=== PATIENT | male | born 1940 | race Caucasian/White ===

== ENCOUNTER 2016-11-25 07:04 | Outpatient (CLI) | payer MEDICARE ==
--- NOTE | ~2016-11-25 | HEMODYNAMI ---
PATIENT:YOSELIN GOLDBERG MEDICAL RECORD: [id number] : 44 LOCATION:[facility] ADMISSION DATE: 11/25/16 Generatedon:11/25/201610:20 Patient name: YOSELIN GOLDBERG Patient #: [id number] SSN: : 1940 Date of study: 11/25/2016 Page: Of Hemodynamic Procedure Report Patient Data Patient Demographics Procedure consent was obtained First Name: YOSELIN Gender: Male Last Name: YUSUF : 1940 Patient #: [id number] Age: 76 year(s) Race: Unknown Additional ID: [id number] Contact details [address]: [address] [place] [address] State: [place] City: [place] Zip code: [address] Past Medical History Allergies Allergen Reaction Date Comments Reported Other allergy 11/25/2016 Cortisone, Sulfa Admission Admission Data Admission Date: 11/25/2016 Admission Time: 7:04 Procedure Procedure Types Cath Procedure Diagnostic Procedure LHC LHC w/Coronaries PCI Procedure Coronary Stent Initial Miscellaneous Procedures Moderate Sedation up to 15 minutes Procedure Description Procedure Date Procedure Date: 11/25/2016 Procedure Start Time: 9:47 Procedure End Time: 10:15 Procedure Staff Name Function Aiden Underwood MD Performing Physician Domenica Bañuelos RT Scrub Ramon Lobo RN Nurse Roxana Dacosta RT Monitor Procedure Data Cath Procedure Fluoroscopy Diagnostic fluoroscopy Total fluoroscopy Time: 8.1 time: 8.1 min min Diagnostic fluoroscopy Total fluoroscopy dose: dose: 1206 mGy 1206 mGy Contrast Material Contrast Material Type Amount (ml) Isovue 300 83 Entry Location Entry Primary Successful Side Size Upsize Upsize Entry Closure Fuentes ccessful Closure Location (Fr) 1 (Fr) 2 (Fr) Remarks Device Remarks Radial Right 6 Fr Mechanical TR band artery Short Compression Estimated blood loss: 10 ml Diagnostic catheters Device Type Used For End Catheter Placement Diagnostic Terumo 5Fr Procedure [place] 110cm catheter Diagnostic Infinity 5Fr Procedure AR 1 MOD catheter Procedure Complications No complications Procedure Medications Medication Administration Route Dosage Oxygen NC 2 l/min Heparin Flush Bag added to field 2 bags (1000units/500ml NS) 0.9% NaCl I.V. 100 ml/hr Radial Cocktail added to field 1 syringe (Verapomil 2mg/Nitro 400mcg/Heparin 1500units) Versed I.V. 1 mg Fentanyl I.V. 50 mcg Radial Cocktail I.A. 1 syringe (Verapomil 2mg/Nitro 400mcg/Heparin 1500units) Angiomax (bolus) I.V. 13.5 ml Angiomax Drip I.V. drip 31.9 ml/hr (250mg/50ml NS) (Standard) Fentanyl I.V. 25 mcg Versed I.V. 1 mg Hemodynamics Rest Heart Rate: 72 (bpm) Pressure Samples Time Site Value (mmHg) Purpose Heart Use Rate(bpm) 9:52 LV 131/8,15 Snapshot 63 9:52 LV 136/68,78 Snapshot 69 9:57 AO 119/58(85) Snapshot 70 Gradients Valve Time Site Site Mean SEP/DFP Peak To Heart Use 1 2 (mmHg) (sec/min) Peak Rate (mmHg) (bpm) Other 9:52 LV LV 66 Snapshots Pre Cath Intra NCS Post Cath Vital Signs Time Heart Resp SPO2 etCO2 [id number] NIBP (mmHg) Rhythm Pain Sedation Rate (ipm) (%) (mmHg) (mmHg) Status Level (bpm) 9:38:44 52 17 99 0 0 158/71(135) NSR 0 (11) 10(A) , No pain 9:43:37 65 17 98 0 0 154/69(105) NSR 0 (11) 10(A) , No pain 9:48:30 51 17 98 0 0 146/69(116) NSR 0 (11) 10(A) , No pain 9:53:12 60 18 99 0 0 125/64(96) NSR 0 (11) 10(A) , No pain 9:57:53 69 18 98 0 0 123/58(107) NSR 0 (11) 10(A) , No pain 10:02:38 64 17 98 0 0 121/61(101) NSR 0 (11) 10(A) , No pain 10:07:18 63 17 98 0 0 127/75(98) NSR 0 (11) 10(A) , No pain 10:12:36 59 17 99 0 0 119/69(100) NSR 0 (11) 10(A) , No pain 10:18:14 56 17 98 0 0 121/67(105) NSR 0 (11) 10(A) , No pain Medications Time Medication Route Dose Verified Delivered Reason Note s Effectiveness by by 9:38:04 Oxygen NC 2 l/min Aiden Ramon Per physician Kj Lobo RN, MD 9:38:22 Heparin Flush added 2 bags Aiden Ramon used for Bag to Kj Lobo RN procedure (1000units/500ml field MONDRAGON NS) 9:38:36 0.9% NaCl I.V. 100 Aiden Ramon Per physician ml/hr Kj Lobo RN, MD 9:38:57 Radial Cocktail added 1 Aiden Ramon used for (Verapomil to syringe Kj Lobo RN procedure 2mg/Nitro field MONDRAGON 400mcg/Heparin 1500units) 9:43:21 Versed I.V. 1 mg Aiden Ramon for sedation Kj Lobo RN, MD 9:43:29 Fentanyl I.V. 50 mcg Aiden Ramon for sedation Kj Lobo RN, MD 9:50:40 Radial Cocktail I.A. 1 Aiden Aiden for (Verapomil syringe Kj Underwood MD vasodilation 2mg/Nitro MD 400mcg/Heparin 1500units) 10:08:45 Angiomax (bolus) I.V. 13.5 ml Aiden Ramon for Kj Lobo RN anticoagulation 10:09:05 Angiomax Drip I.V. 31.9 Aiden Ramon for (250mg/50ml NS) drip ml/hr Kj Lobo RN anticoagulation (Standard) 10:09:11 Fentanyl I.V. 25 mcg Aiden Ramon for sedation Kj Lobo RN, MD 10:09:16 Versed I.V. 1 mg Aiden Ramon for sedation Kj Lobo RN, MD Procedure Log Time Note 9:12:37 Ramon Lobo RN sent for patient. Start room use. 9:12:44 Time tracking: Regular hours 9:12:49 Plan of Care:Hemodynamics will remain stable., Cardiac rhythm will remain stable., Comfort level will be maintained., Respiratory function will remain adequate., Patient/ family verbilizes understanding of procedure., Procedure tolerated without complication., Recovers from procedure without complications.. 9:37:06 Vital chart was started 9:38:04 Oxygen 2 l/min NC was administered by Ramon Lobo RN; Per physician; 9:38:22 Heparin Flush Bag (1000units/500ml NS) 2 bags added to field was administered by Ramon Lobo RN; used for procedure; 9:38:36 0.9% NaCl 100 ml/hr I.V. was administered by Ramon Lobo RN; Per physician; 9:38:57 Radial Cocktail (Verapomil 2mg/Nitro 400mcg/Heparin 1500units) 1 syringe added to field was administered by Ramon Lobo RN; used for procedure; 9:39:20 Patient received from Pre/Post Procedure Room to CCL 1 Alert and oriented. Tansferred to table in Supine position. 9:39:22 Warm blankets applied, and adelita hugger turned on for patient comfort. 9:39:23 Correct patient and procedure confirmed by team. 9:39:25 Signed procedure consent form obtained from patient. 9:39:26 ECG and BP/O2 sat monitors applied to patient. 9:39:28 Baseline sample Acquired. 9:39:38 Baseline sample Acquired. 9:39:47 Rhythm: sinus rhythm 9:39:49 Full Disclosure recording started 9:40:48 H&P Date Dictated: 11/25/2016 Within 30 days and on chart., H&P Addendum completed by physician on day of procedure. (MUST COMPLETE FOR ALL OUTPATIENTS). 9:40:51 Pre-procedure instructions explained to patient. 9:40:53 Family in waiting room. 9:40:55 Patient NPO since Midnight. 9:41:14 Patient allergic to Other allergyCortisone, Sulfa 9:41:23 Is the patient allergic to Iodine/contrast media? No. 9:41:25 Was the patient premedicated? Yes 9:41:27 Is patient on blood thinner?No 9:41:30 Patient diabetic? No. 9:41:38 Snore? No 9:41:40 Sleep apnea? No 9:41:47 Dentures? No ? 9:41:52 Patient pain scale 0/10 ?. 9:41:59 IV patent on arrival in left forearm with 0.9% NaCl at [facility]. 9:42:09 Lab results completed and on chart. 9:42:14 Right Radial & Right Groin area was prepped with chlora-prep and draped in sterile fashion 9:42:16 Alarms reviewed by R. N. 9:42:16 Sharps counted by scrub and verified by R.N. 9:42:17 Physician paged 9:42:18 Physician arrived 9:42:19 --------ALL STOP TIME OUT------ 9:42:21 Final Timeout: patient, procedure, and site verified with staff and physician. All members of the team are in agreement. 9:42:24 Right Radial & Right Groin site verified by team. 9:42:28 Sedation plan: IV Moderate Sedation Versed, Fentanyl 9:43:21 Versed 1 mg I.V. was administered by Ramon Lobo RN; for sedation; 9:43:29 Fentanyl 50 mcg I.V. was administered by Ramon Lobo RN; for sedation; 9:46:34 Use device set Radial Dx 9:46:38 Procedure started. 9:47:30 Local anesthetic to right radial artery with Lidocaine 2% by Aiden Underwood MD.INITIAL ACCESS ONLY 9:50:10 A 6 Fr Short sheath was inserted into the Right Radial artery 9:50:40 Radial Cocktail (Verapomil 2mg/Nitro 400mcg/Heparin 1500units) 1 syringe I.A. was administered by Aiden Underwood MD; for vasodilation; 9:51:21 A Diagnostic Terumo 5Fr [place] 110cm catheter was advanced over the wire and used for Procedure. 9:51:35 Acist Syringe opened to sterile field. 9:51:37 Medline Cath Pack opened to sterile field. 9:51:37 Bag Decanter opened to sterile field. 9:51:38 Terumo 6Fr Slender Glidesheath opened to sterile field. 9:51:38 St Yovanny 260cm J .035 wire opened to sterile field. 9:51:39 Acist Hand Control opened to sterile field. 9:51:39 Acist Manifold opened to sterile field. 9:51:39 Tegaderm 4 x 4 opened to sterile field. 9:51:40 MBrace Wrist Support opened to sterile field. 9:51:48 J wire advanced. 9:53:05 LCA angiography performed. 9:56:22 Catheter removed. 9:58:39 A Diagnostic Infinity 5Fr AR 1 MOD catheter was advanced over the wire and used for Procedure. 9:58:43 RCA angiography performed. 9:59:40 Proceeding to intervention. 9:59:45 Merit BasixCompak Inflation Kit opened to sterile field. 9:59:55 Medtronic Launcher 6Fr EBU 3.5 guide catheter opened to sterile field. 10:00:09 6 Fr EBU 3.5 guide catheter was inserted over the wire 10:00:33 SimpleMist BMW Cassoday II J-Tip 190cm wire opened to sterile field. 10:02:08 BMW wire advanced. 10:03:42 Wire advanced across lesion. 10:08:45 Angiomax (bolus) 13.5 ml I.V. was administered by Ramon Lobo RN; for anticoagulation; 10:09:05 Angiomax Drip (250mg/50ml NS) (Standard) 31.9 ml/hr I.V. drip was administered by Ramon Lobo RN; for anticoagulation; 10:09:11 Fentanyl 25 mcg I.V. was administered by Ramon Lobo RN; for sedation; 10:09:16 Versed 1 mg I.V. was administered by Ramon Lobo RN; for sedation; 10:10:26 Inflation Number: 1 A Locustdale RX 2.25 x 15 stent was prepped and advanced across the Mid CX. The stent was deployed at 12 JANN for 0:33 (min:sec). 10:10:51 Stent catheter was removed intact over wire. 10:11:36 Wire removed. 10:11:38 Guide catheter removed. 10:12:30 Sheath removed intact; hemostasis achieved with Mechanical Compression to the Right Radial artery. 10:12:43 Terumo TR Band Standard opened to sterile field. 10:12:48 Procedure ended.(Physican Out) 10:13:00 Fluoroscopy time 08.10 minutes. 10:13:03 Fluoroscopy dose: 1206 mGy 10:13:03 Flurop Dose total: 1206 10:13:08 Contrast amount:Isovue 300 83ml. 10:13:10 Sharps counted by scrub and verified by R.N. 10:13:14 TR band inflated with 10cc of air. 10:13:20 Insertion/operative site no bleeding no hematoma. 10:13:31 Post Procedure Pulses reassessed and unchanged 10:13:36 Post-procedure physical assessment completed. ASA score P 2 - A patient with mild systemic disease as per Aiden Underwood MD. 10:13:44 Post procedure rhythm: sinus rhythm 10:13:47 Estimated blood loss: 10 ml 10:14:03 Procedure type changed to Cath procedure, Diagnostic procedure, LHC, LHC w/Coronaries, PCI procedure, Coronary Stent Initial, Miscellaneous Procedures, Moderate Sedation up to 15 minutes 10:14:30 Procedure and supply charges have been captured, reviewed, submitted and are correct. 10:15:04 Procedure Complication : No complications 10:15:08 Vital chart was stopped 10:15:09 See physician's report for complete and final results. 10:15:12 Report given to Pre/Post Procedure Room. 10:15:15 Patient transfered to Pre/Post Procedure Room with Stretcher. 10:15:18 Procedure ended. 10:15:18 Full Disclosure recording stopped 10:15:21 End room use (Document Last) Intervention Summary Intervention Notes Time ActionType Lesion and Equipment Action# Pressure Duration Attributes Used 10:10:26 Place stent Mid CX Locustdale RX 1 12 00:33 2.25 x 15 stent Device Usage Item Name Manufacture Quantity Catalog Hospital Part Current Minim al Lot# / Number Charge Number Stock Stock Serial# Code Diagnostic Terumo 1 [id number] 246340 254096 5 Terumo 5Fr [place] 110cm catheter Acist Acist 1 74593 592263 011033 629788 20 Syringe Medical Systems Inc Medline Cardinal 1 [id number] 235531 29025 002985 5 Cath Pack Health Bag Microtek 1 2001S 421743 70160 641214 5 [employer] Terumo 6Fr Terumo 1 [id number] 052601 923599 667975 [address] St Yovanny 1 765812 131719 473312 230951 30 260cm J .035 wire Acist Hand Acist 1 13987 335217 178876 546163 5 Diablo [employer] Medical Systems Inc Acist Acist 1 45257 144503 270173 564469 5 Ph[employer] Medical Systems Inc Tegaderm 4 3M 1 1626W 105911 280903 854497 5 x 4 MBrace Advanced 1 140-0250-00 561326 67363 619294 5 Wrist Vascular Support Dynamics Diagnostic Cardinal 1 [id number] 834727 294643 552456 15 Project Fixupity Health 5Fr AR 1 MOD catheter Merit Merit 1 [id number] 984258 484510 085833 15 BasixCompak Medical Inflation Kit Medtronic Medtronic 1 [id number] 601496 43475 862399 3 Launcher 6Fr EBU 3.5 guide catheter Logan BMW Logan 1 [id number] 465403 98482 454542 5 Cassoday Vascular II J-Tip 190cm wire [place] RX Medtronic 1 [id number] 395155 8632313 169082 5 [id number] 2.25 x 15 stent Terumo TR Terumo 1 [id number] 880882 298146 223626 40 Band Standard Signature Audit [place] Stage Time Signature Unsigned Intra-Procedure 11/25/2016 Roxana Dacosta 10:20:18 AM RT(R) Signatures Monitor : Roxana Dacosta Signature : RT Date : Time : [place] [id number] [place] [address]
[2016-11-25] MEDS ORDERED: PROSCAR5 MG PO (07:41)
[2016-11-25] MEDS ORDERED: FLUTICASONE PRO16 GM NASAL (07:41)
[2016-11-25] MEDS ORDERED: CIPRO500 MG PO (07:42)
[2016-11-25] MEDS ORDERED: COZAAR50 MG PO (07:42)
[2016-11-25] MEDS ORDERED: NITROSTAT0.4 MG SL (07:42)
[2016-11-25] MEDS ORDERED: ZYRTEC10 MG PO (07:43)
[2016-11-25] MEDS ORDERED: LEXAPRO20 MG PO (07:43)
[2016-11-25] MEDS ORDERED: FLINTSTONE1 TAB.CHEW PO (07:43)
[2016-11-25 08:04] VITALS: BP 154/70; BMI 30.4
[2016-11-25 09:33] LABS: BASOPHILS 0.7 % (0-2); EOSINOPHILS 8.8 % (0-7); HEMATOCRIT 38.1 % (42.0-54.0); HEMOGLOBIN 13.3 g/dL (13.5-17.5); IMMATURE GRANULOCYTES 0.4 % (0-5); LYMPHOCYTES 40.7 % (15-50); MCH 33.3 pg (26.0-34.0); MCHC 34.9 g/dL (31.0-37.0); MCV 95.3 fL (80.0-100.0); MONOCYTES 12.9 % (2-11); NEUTROPHILS 36.5 % (40-80); PLATELET COUNT 203 10x3/uL (130-400); RDW 13.3 % (11.5-14.5); WBC 7.1 10x3/uL (4.8-10.8)
--- NOTE | 2016-11-25 10:30 | NUR ---
1030 RECEIVED PT FROM [employer]. PT IS AWAKE, DENIES ANY C/O PAIN OR NAUSEA. TR BAND TO RIGHT WRIST IS CDI, NO BLEEDING OR HEMATOMA NOTED. WRIST IMMOBILIZER IN PLACE. SINUS BRADYCARDIA ON MONITOR, RATE 58, DENIES ANY C/O CHEST PAIN. CALL LIGHT IN REACH, NO FAMILY AT BEDSIDE.
--- NOTE | 2016-11-25 10:59 | NUR ---
0195 DR CASTANO HAS ROUNDED ON PT. PT DENIES ANY C/O AT THIS TIME. CATH SITE FREE FROM BLEEDING OR HEMATOMA. VSS. CALL LIGHT IN REACH.
--- NOTE | 2016-11-25 11:09 | NUR ---
1100 PT ROMEO PO FLUIDS AND SANDWICH WITH NO C/O NAUSEA. NO BLEEDING OR HEMATOMA NOTED AT CATH SITE. VSS. DENIES ANY C/O, CALL LIGHT IS IN REACH.
--- NOTE | 2016-11-25 11:30 | NUR ---
1130 RIGHT WRIST CATH SITE FREE FROM BLEEDING OR HEMATOMA. TR BAND CDI, WRIST IMMOBILIAER IN PLACE. FINGERS WARM, CAP REFILL IS BRISK. VSS. PT HAS ROMEO SANDWICH AND PO FLUIDS WITH NO C/O NAUSEA. IV PATENT AND INFUSING PER ORDERS. PT DENIES ANY C/O AT THIS TIME. CALL LIGHT IN REACH, NO FAMILY AT BEDSIDE AT THIS TIME.
--- NOTE | 2016-11-25 12:15 | NUR ---
1215 TR BAND IS CDI, WRIST IMMOBILIZER IN PLACE. PT DENIES ANY C/O, CONTINUE TO MONITOR.
--- NOTE | 2016-11-25 12:40 | NUR ---
1240 DR CASTANO HAS ROUNED ON PT AGAIN. PT DENIES ANY C/O. TR BAND IS CDI, AREA FREE FROM BLEEDING OR HEMATOMA. FINGERS WARM, CAP REFILL IS BRISK. CALL LIGHT IN REACH.
[2016-11-25] MEDS ORDERED: BAYER CHEWABLE81 MG PO (12:55)
[2016-11-25] MEDS ORDERED: PLAVIX75 MG PO (12:55)
--- NOTE | 2016-11-25 13:38 | NUR ---
1320 TR BAND DEFLATION BEGUN WITH 3 CC OF AIR REMOVED FROM TR BAND, NO BLEEDING OR HEMATOMA NOTED.
--- NOTE | 2016-11-25 13:50 | NUR ---
1350 NO BLEEDING OR HEMATOMA AT TR BAND, 3 MORE CC HAVE BEEN REMOVED. PT HAS VOIDED 550 CC CLEAR YELLOW URINE TO URINAL. CALL LIGHT IS IN REACH, PT DENIES ANY C/O AT THIS TIME.
--- NOTE | 2016-11-25 14:21 | NUR ---
1415 ALL AIR HAS BEEN REMOVED FROM TR BAND, NO BLEEDING OR HEMATOMA NOTED. PT DENIES ANY C/O AT THIS TIME. VSS.
--- NOTE | 2016-11-25 14:52 | NUR ---
1450 2X2 AND TEGADERM TO CATH SITE IS CDI, NO BLEEDING OR HEMATOMA NOTED. IV DC'D WITH CATH INTACT. ASSISTED PT WITH DRESSING FOR DC TO HOME. WRIST IMMOBILIZER IN PLACE.
--- NOTE | 2016-11-25 14:53 | NUR ---
1505 PT HAS AMBULATED TO THE BATHROOM AND VOIDED QS. DRESSING TO RIGHT WRIST REMAINS CDI, AREA FREE FROM BLEEDING OR HEMATOMA. RIGHT WRIST IMMOBILIZER IN PLACE. FINGERS WARM, CAP REFILL IS BRISK. PT DENIES ANY C/O. DC INSTRUCTIONS HAVE BEEN REVIEWED WITH PT WHO VERBALIZES UNDERSTANDING. WRITTEN COPIES, HOMECARE BOOKLET, PLAVIX PRESCRIPTION AND STENT CARD GIVEN TO PT. PT INSTRUCTED TO START PLAVIX TOMORROW AND VERBALIZES UNDERSTANDING. PT ESCORTED TO PRIVATE AUTO VI[employer] WC WITH FRIEND DRIVING HIM HOME.
== END 2016-11-25 15:05 | disposition home or self-care (01) ==
LOC: D.CATH 07:04
PROVIDERS: Internal Medicine Cardiovascular Disease
DX: I20.9 Angina pectoris, unspecified (principal); R94.30 Abnormal result of cardiovascular function study, unspecified; R06.02 Shortness of breath; R07.9 Chest pain, unspecified; Z01.812 Encounter for preprocedural laboratory examination
CPT/HCPCS: 93458; C9600

== ENCOUNTER → 2017-01-31 16:23 | Outpatient (CLI) | payer MEDICARE ==
[~2017-01-31 16:23] MED LIST: BAYER CHEWABLE81 MG PO; CIPRO500 MG PO; COZAAR50 MG PO; FLINTSTONE1 TAB.CHEW PO; FLUTICASONE PRO16 GM NASAL; LEXAPRO20 MG PO; NITROSTAT0.4 MG SL; PLAVIX75 MG PO; PROSCAR5 MG PO; ZYRTEC10 MG PO
[2017-01-31 20:25] LABS: ALT (SGPT) 29 U/L (10-68); CALC OSMOLALITY 281 mosm/kg (275-300); CALCIUM 8.7 mg/dL (8.5-10.1); CARBON DIOXIDE 24.5 mmol/L (21.0-32.0); CHLORIDE - SERUM 106 mmol/L (98-107); CREATININE - SERUM 0.9 mg/dL (0.6-1.3); GLUCOSE 94 mg/dL (74-106); POTASSIUM - SERUM 4.6 mmol/L (3.5-5.1); SODIUM 141 mmol/L (136-145); UREA NITROGEN 14 mg/dL (7-18); eGFR NON AFRICAN AMERICAN 88 mL/min (90-120)
== END | disposition home or self-care (01) ==
LOC: D.LABREF 16:23
PROVIDERS: Internal Medicine Cardiovascular Disease
DX: E78.5 Hyperlipidemia, unspecified (principal); I10 Essential (primary) hypertension

== ENCOUNTER → 2017-02-10 17:14 | Outpatient (CLI) | payer MEDICARE ==
[2017-02-10 18:01] LABS: CHOL - HDL RATIO 3.2 ratio (2.3-4.9); LDL-HDL RATIO 1.9 ratio (1.5-3.5)
== END | disposition home or self-care (01) ==
LOC: D.LABREF 17:14
PROVIDERS: Internal Medicine Cardiovascular Disease
DX: E78.5 Hyperlipidemia, unspecified (principal)

== ENCOUNTER → 2017-08-30 13:05 | Outpatient (CLI) | payer MEDICARE ==
--- NOTE | ~2017-08-30 | EC ---
PATIENT:YOSELIN GOLDBERG DATE OF SERVICE: 08/30/17 SEX: M MEDICAL RECORD: [id number] DATE OF : 44 LOCATION:[facility] AGE OF PATIENT: 76 ADMISSION DATE: 08/30/17 REFERRING PHYSICIAN: INTERPRETING PHYSICIAN: JANAK CASTANO MD ECHOCARDIOGRAM REPORT ECHO CHARGES 4 ECHO COMPLETE Date: 08/30 CLINICAL DIAGNOSIS: CAD, HTN, CP ECHOCARDIOGRAPHIC MEASUREMENTS (adult normal given) AC root (d.<3.7cm) 3.2 cm LV Septum d (<1.2 cm> 1.2 cm Valve Excursion 1.4 cm LV Septum (systole) 1.2 cm Left Atria (s.<4.0cm> 3.7 cm LVPW d(<1.2cm) 1.2 cm RV (d.<2.3cm) 2.3 cm LVPW (sytole) 1.0 cm LV diastole(<5.6CM) 5.4 cm MV E-F(>70mm/sec) cm LV systole 4.2 cm LVOT Diameter 1.9 cm MV exc.(>10mm) cm Est.ejection fraction (50-75%) % DOPPLER: LVIT cm/sec A 92 cm/sec E 98 cm/sec LA cm/sec RVSP 17 mmHg LVOT 79 cm/sec AOP1/2T m/s Asc. Ao 166 cm/sec RVOT cm/sec RA cm/sec PA 67 cm/sec AV Gradient Peak 11.04mmHg AV Mean 6.08 mmHg AV Area 1.5 cm MV Gradient Peak 4.99 mmHg MV Mean 2.16 mmHg MV Area cm COMMENTS: Captain'S Assistant: Construction Mgr: Reid Castano TAPE# PACS Pericardial Effusion N DATE OF SERVICE: PROCEDURE: Transthoracic echocardiogram. FINDINGS: 1. The patient was significantly bradycardic at times during the procedure. The left ventricle was difficult to visualize, but grossly normal structure and function. Inflow characteristics appeared to be normal. 2. Possible grade II diastolic dysfunction. 3. Aortic valve is normal. ECHOCARDIOGRAM REPORT [id number] YOSELIN GOLDBERG 4. The mitral valve has mild mitral regurgitation. 5. Tricuspid valve is difficult to visualize, but appears to be grossly normal. The RVSP that was sampled appears to be normal. 6. Right ventricle is dilated. The right atrium is mildly dilated, but both have apparently normal structure. The interatrial septum was not well visualized. 7. The pulmonic valve grossly normal. CONCLUSIONS: The patient has a normal echocardiogram for patient's stated age, but there was difficulty seeing endocardial structures. There was right ventricular enlargement with normal function. TRANSINT:[id number] Voice Confirmation ID: [id number] DOCUMENT ID: [id number] JANAK CASTANO MD at 0956 CC: [id number] DICTATION DATE: 08/31/17916 ETHYLENE PLANT HELPER: 08/31/17 1044 DEP CLI 08/30/17 [facility] [address] [place] [address]
== END | disposition home or self-care (01) ==
LOC: D.ECHO 13:00
DX: I25.10 Atherosclerotic heart disease of native coronary artery without angina pectoris (principal); I10 Essential (primary) hypertension; I20.9 Angina pectoris, unspecified; E78.5 Hyperlipidemia, unspecified; R07.2 Precordial pain

== ENCOUNTER → 2018-03-02 15:56 | Outpatient (CLI) | payer MEDICARE ==
[2018-03-02 17:04] LABS: CHOL - HDL RATIO 2.6 ratio (2.3-4.9); LDL-HDL RATIO 1.4 ratio (1.5-3.5)
== END | disposition home or self-care (01) ==
LOC: D.LABREF 15:56
PROVIDERS: Internal Medicine Interventional Cardiology
DX: E78.5 Hyperlipidemia, unspecified (principal)